=== PATIENT | female | born 1975 | race Caucasian/White ===

== ENCOUNTER 2023-03-12 17:36 | Emergency (ER) | payer OTHER, SELFPAY ==
[2023-03-12 17:38] VITALS: BP 136/96; PULSE 103; RESP 22; TEMP 37.1; O2SAT 98; BMI 26.6
--- NOTE | 2023-03-12 17:45 | DI.RAD.S_ITS ---
PROCEDURE: XR SHOULDER RT MIN 2V INDICATIONS: right arm pain, fell off horse TECHNIQUE: 2 views of the shoulder were acquired. COMPARISON: None. FINDINGS: Bones: No fracture or dislocation of the right shoulder. A mid shaft right humerus fracture with several adjacent fragments seen with 1 bone width displacement. Soft tissues: No suspicious soft tissue calcifications. IMPRESSION: No right shoulder fracture. Transverse fracture of the humerus with several adjacent bone fragments. Dictated by: Dustin Norton M.D. on 03/12/2023 at 19:02 Approved by: Dustin Norton M.D. on 03/12/2023 at 19:03
--- NOTE | 2023-03-12 17:45 | DI.RAD.S_ITS ---
PROCEDURE: XR CHEST 1V INDICATIONS: right hip pain TECHNIQUE: One view of the chest was acquired. COMPARISON: None. FINDINGS: Surgical changes and devices: None. Lungs and pleura: Lungs are clear. No pleural effusions or pneumothorax. Mediastinum: Mediastinal contours appear normal. Heart size is normal. Bones and chest wall: No suspicious bony lesions. Overlying soft tissues appear unremarkable. IMPRESSION: No acute cardiopulmonary abnormality. Dictated by: Dustin Norton M.D. on 03/12/2023 at 19:04 Approved by: Dustin Norton M.D. on 03/12/2023 at 19:04
--- NOTE | 2023-03-12 17:45 | DI.RAD.S_ITS ---
PROCEDURE: XR ELBOW RT 2V INDICATIONS: right arm pain, fell off horse TECHNIQUE: 3 views of the elbow were acquired. COMPARISON: None. FINDINGS: Bones: Mid shaft fracture of the right humerus with 1 bone width displacement. Several small bony fragments are seen adjacent to the fracture. Soft tissues: No elbow joint effusion. No suspicious soft tissue calcifications. IMPRESSION: Transverse midshaft fracture of the right humerus with displacement. Dictated by: Dustin Norton M.D. on 03/12/2023 at 19:00 Approved by: Dustin Norton M.D. on 03/12/2023 at 19:01
--- NOTE | 2023-03-12 17:45 | DI.RAD.S_ITS ---
PROCEDURE: XR HIP W PEL IF DONE RT 2V INDICATIONS: right hip pain TECHNIQUE: AP pelvis with lateral view(s) of the right hip(s). COMPARISON: None. FINDINGS: Bones: No fractures or dislocations. Pelvic ring appears intact. No suspicious bony lesions. Soft tissues: The visualized bowel gas pattern is normal. No suspicious soft tissue calcifications. IMPRESSION: No acute traumatic abnormality of the pelvis or right hip. Dictated by: Dustin Norton M.D. on 03/12/2023 at 19:02 Approved by: Dustin Norton M.D. on 03/12/2023 at 19:02
[2023-03-12] MEDS: ONDANSETRON 4 MG/2 ML INJ IV (17:51)
[2023-03-12] MEDS: MORPHINE 4 MG/ML INJ IV (17:51)
[2023-03-12] MEDS: TET,DIPH,PERTUSS(ACELL),VAC/PF 0.5 ML SYRINGE IM (17:52)
--- NOTE | 2023-03-12 18:01 | PC.NURSE ---
Dr Sherman clear C spine in triage. Attempted to place shoulder sling but too painful for pt to move arm. Propped arm with pillow for position of comfort.
[2023-03-12] MEDS: HYDROMORPHONE 1 MG INJ IM (19:03)
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
[2023-03-12] MEDS: HYDROMORPHONE 1 MG INJ IV (20:06)
[2023-03-12] MEDS: HYDROCODONE/ACET 5/325 PREPACK 1 BOTTLE MISC (20:57)
[2023-03-12 21:00] VITALS: BP 133/70; PULSE 87; RESP 18; O2SAT 96
== END 2023-03-12 21:08 | disposition home or self-care (01) ==
PROVIDERS: Emergency Provider Emergency Medicine
DX: S42.301A Unspecified fracture of shaft of humerus, right arm, initial encounter for closed fracture (principal); S79.911A Unspecified injury of right hip, initial encounter; V80.010A Animal-rider injured by fall from or being thrown from horse in noncollision accident, initial encounter; Z23 Encounter for immunization
CPT/HCPCS: 36415; 71045; 73030; 73070; 73502; 90471; 96374; 96375; 96376; 99285; 90715; J1170; J2270; J2405

== ENCOUNTER → 2023-08-16 13:00 | Outpatient (CLI) | payer OTHER, SELFPAY ==
--- NOTE | 2023-08-16 | DI.CT.S_ITS ---
PROCEDURE: CT UE RT WO CON INDICATIONS: Displaced oblique fracture of shaft of humerus, Right TECHNIQUE: Noncontrast 1-1.5 mm thick sections acquired from the acromioclavicular joint to the inferior scapula, with coronal and sagittal reformatting. COMPARISON: [facility], CR, XR HUMERUS RIGHT, 04/09/2023, 13:51. [facility], CR, XR SHOULDER RT MIN 2V, 03/12/2023, 17:57. [facility], MR, MR SHOULDER RIGHT WITH/WITHOUT CONTRAST, 08/09/2023, 9:01. [facility], CR, XR HUMERUS RIGHT, 07/23/2023, 13:40. FINDINGS: Image quality: Excellent. Bones: Postsurgical changes are again seen from internal fixation of a midshaft humeral fracture. A larger plate and screw construct is seen laterally and there is a smaller plate and screw construct anteriorly. The metal hardware is intact without signs loosening of. Progressive healing changes are seen at the fracture site with suspected partial osseous bridging although the majority of the fracture line is still visualized. Periosteal new bone formation is seen. Postsurgical alignment is anatomic. Mild degenerative changes are seen at the acromioclavicular joint. No acute osseous abnormality is seen Soft tissues: No significant glenohumeral effusion. The rotator cuff musculature is normal in bulk. The remaining visualized musculature appears normal. Postsurgical scarring is seen in subcutaneous tissues at the anterolateral aspect of the right upper arm. The included portions of the right chest wall demonstrate no acute abnormality. A 3 mm nodule is seen in the peripheral right upper lobe (38/5). IMPRESSION: Postsurgical changes from internal fixation of a humeral shaft fracture with progressive healing changes including periosteal new bone formation and likely mild partial osseous bridging across the fracture line. However, the majority of the fracture line is still visualized. No acute hardware complication is seen. Approved by: Slade Patten M.D. on 08/16/2023 at 21:05
== END ==
PROVIDERS: PCP Family Medicine; Referring Provider Orthopaedic Surgery; Visit Provider Orthopaedic Surgery
DX: S42.331D Displaced oblique fracture of shaft of humerus, right arm, subsequent encounter for fracture with routine healing (principal); X58.XXXD Exposure to other specified factors, subsequent encounter
CPT/HCPCS: 73200